=== PATIENT | male | born 1955 | race Caucasian/White ===

== ENCOUNTER → 2024-09-24 12:34 | Outpatient (REF) | payer OTHER, SELFPAY | LOC: RAD 12:34 | PROVIDERS: ATTENDING PHYSICIAN Nurse Practitioner Adult Health | DX: M79.18 Myalgia, other site (principal); R29.898 Other symptoms and signs involving the musculoskeletal system; M54.16 Radiculopathy, lumbar region | CPT/HCPCS: 72110 ==

== ENCOUNTER → 2024-10-01 15:08 | Outpatient (REF) | payer OTHER, SELFPAY | LOC: RAD 15:08 | PROVIDERS: ATTENDING PHYSICIAN Nurse Practitioner Adult Health | DX: M79.652 Pain in left thigh (principal) | CPT/HCPCS: 73552 ==

== ENCOUNTER 2024-10-16 13:14 | Outpatient (RCR) | payer OTHER, SELFPAY | END 2024-10-16 23:59 | disposition home or self-care (01) | LOC: RPT 13:14 | PROVIDERS: ATTENDING PHYSICIAN Nurse Practitioner Adult Health | DX: M54.16 Radiculopathy, lumbar region (principal); R29.898 Other symptoms and signs involving the musculoskeletal system; M79.18 Myalgia, other site; Z73.6 Limitation of activities due to disability; M62.81 Muscle weakness (generalized); R26.89 Other abnormalities of gait and mobility | CPT/HCPCS: 97110; 97162 ==

== ENCOUNTER → 2024-10-31 10:31 | Outpatient (REF) | payer OTHER, SELFPAY | LOC: EMG 10:31 | PROVIDERS: ATTENDING PHYSICIAN Nurse Practitioner Adult Health | DX: M54.14 Radiculopathy, thoracic region (principal); R29.2 Abnormal reflex; R20.0 Anesthesia of skin; Z01.818 Encounter for other preprocedural examination | CPT/HCPCS: 70030; 95886; 95910 ==

== ENCOUNTER → 2024-11-02 07:03 | Outpatient (REF) | payer OTHER, SELFPAY | LOC: MRI 3T 07:03 | PROVIDERS: ATTENDING PHYSICIAN Nurse Practitioner Adult Health | DX: M79.652 Pain in left thigh (principal); M54.16 Radiculopathy, lumbar region | CPT/HCPCS: 72148 ==

== ENCOUNTER 2024-11-12 13:50 | Outpatient (RCR) | payer OTHER, SELFPAY | END 2024-11-12 23:59 | disposition home or self-care (01) | LOC: RPT 13:50 | PROVIDERS: ATTENDING PHYSICIAN Nurse Practitioner Adult Health | DX: M54.16 Radiculopathy, lumbar region (principal); R29.898 Other symptoms and signs involving the musculoskeletal system; M79.18 Myalgia, other site; Z73.6 Limitation of activities due to disability; M62.81 Muscle weakness (generalized); R26.89 Other abnormalities of gait and mobility | CPT/HCPCS: 97110 ==

== ENCOUNTER 2025-01-15 06:14 | Day surgery (SDC) | payer OTHER, SELFPAY ==
[2024-12-24 13:51] VITALS: BMI 25.2
[2024-12-24 14:12] LABS: Hematocrit 43.6 % (39.0-52.0); Hemoglobin 14.4 g/dL (13.0-18.0); Mean Corp Hgb Conc. 33.0 g/dL (33.0-37.0); Mean Corpuscular Volume 86.2 fL (80.0-94.0); Platelet Count 327 10^3/uL (130-400); Red Cell Dist. Width 13.5 % (11.5-14.5)
[2024-12-24 14:27] LABS: ALT (SGPT) 26 U/L (0-50); AST (SGOT) 24 U/L (17-59); Albumin 4.7 g/dl (3.5-5.0); Alkaline Phosphatase 61 U/L (38-126); Blood Urea Nitrogen 12 mg/dl (9-20); Calcium 9.8 mg/dl (8.4-10.2); Carbon Dioxide 27 mmol/L (22-30); Chloride 101 mmol/L (98-107); Estimated Creatinine Clearance 74 ml/min; Glucose 77 mg/dl (70-99); HDL Cholesterol 39 mg/dl; LDL Cholesterol, Calculated 69 mg/dl; Potassium 4.5 mmol/L (3.5-5.1); Sodium 136 mmol/L (135-145); Total Protein 7.4 g/dl (6.3-8.2); Uric Acid 4.6 mg/dl (3.5-8.5); Very Low Density Lipoprotein 20 mg/dl (0-30); eGFR > 60.00
[2024-12-24 14:52] VITALS: BMI 25.2
[2025-01-15] VITALS (12 sets, daily range): BP systolic 120–152; BP diastolic 60–80; BMI 25.2
[2025-01-15] MEDS: NORMOSOL-R/PLASMALYTE-A 1000 IV (08:24)
[2025-01-15] MEDS: METHOCARBAMOL 1500 MG PO (08:24)
[2025-01-15] MEDS: CELEBREX 200 MG PO (08:24)
[2025-01-15] MEDS: TYLENOL 1000 MG PO (08:24)
[2025-01-15] MEDS: LYRICA 150 MG PO (08:24)
== END 2025-01-15 12:55 | disposition home or self-care (01) ==
LOC: SDS 06:14
PROVIDERS: ATTENDING PHYSICIAN Orthopaedic Surgery Orthopaedic Surgery of the Spine; FAMILY PHYSICIAN Nurse Practitioner Adult Health
DX: M48.061 Spinal stenosis, lumbar region without neurogenic claudication (principal)
CPT/HCPCS: 63047; 36415; 72020; 80053; 80061; 84153; 84154; 84550; 85027; 87070; 93005; C1763

== ENCOUNTER 2025-01-16 20:24 | Observation (INO) | payer OTHER, SELFPAY ==
[2025-01-16] VITALS (7 sets, daily range): BP systolic 110–159; BP diastolic 59–85; BMI 25.1
--- NOTE | 2025-01-16 17:43 | ED.GENMED ---
History of Present Illness
General
Chief Complaint: Cardiac Symptoms
Source: patient and records
Time Seen by Provider: 01/16/25 17:33
History of Present Illness
History of Present Illness:
69-year-old male postop day 1 from a left L4-L5 hemilaminectomy presenting to the ER via EMS from home for evaluation after around 3 PM this afternoon he started experiencing palpitations, chest discomfort and bilateral shoulder pain with a
sensation of near syncope but never actually passing out. Patient states that at time of arrival to the ER all of his symptoms have resolved other than the continued back discomfort from his surgery yesterday. Patient states that he has been
following postoperative directions and has been mostly sedentary today only getting up to have something to eat and drink as well as to go to the bathroom. He did state that around 2 PM he took a dose of oxycodone which he normally does not take.
He denies any fevers, cough, diaphoresis, abdominal pain, nausea or vomiting. Patient is not on any anticoagulant medicine.
Past History
Past History
ED Past Medical History: HTN and Hypercholesterolemia
ED Past Surgical History: Cholecystectomy and Orthopedic
Social History
Tobacco: Non-smoker
Alcohol: None
Drug: None
Personal: Single
Living: alone
Review of Systems
Review of Systems
All Other Systems: ROS reviewed and negative except as documented in HPI and ROS
Phy Exam
Physical Exam
Physical Exam:
GENERAL: Alert , in no apparent distress
HEAD: Normocephalic atraumatic
EYE: clear conjunctiva
NECK: Supple
ENT: o/p clr, mmm.
CARDIAC: Tachycardic rate, regular rhythm
LUNGS: Clear breath sounds bilaterally, no acute respiratory distress, no wheezes/rales/rhonchi
ABDOMEN: Soft, without focal tenderness, no r/g, no cvat
NEUROLOGICAL: Alert and oriented
SKIN: Warm and dry, skin intact.
MUSCULOSKELETAL: No edema, well perfused.
PSYCH: Normal and appropriate interaction.
Scores
Heart Failure Risk
Heart Failure Risk Score: Not Applicable
Heart Score for Chest Pain Patients
STEMI patient?: Not applicable
Withdrawal Assessment of Alcohol
Withdrawal Assessment Completed?: Not applicable
Course
Orders/Labs/Results
Orders:
Orders
01/16/25 17:36
Electrocardiogram (*1) Urgent
Reason for Study: Tachycardia
01/16/25 17:37
EKG- Treatment ONCE
01/16/25 17:42
CT Chest PE Study Urgent
Comment:
Reason For Exam: palpitations, chest/neck pain, recent surgery
0.9% Sodium Chloride 1000 ml [Nss] 1,000 ml IV BOLUS
01/16/25 17:47
Basic Metabolic Panel Urgent
Magnesium Urgent
01/16/25 17:48
Complete Blood Count/With Diff Urgent
Troponin I Urgent
01/16/25 19:33
Urinalysis Reflex To Culture Urgent
Date Specimen was Collected: 01/16/25
Time Specimen was Collected: 19:31
Urine Microscopic Reflex Cult Urgent
01/16/25 20:12
Cervical Spine wo Contrast CT [CT Cervical Spine W/o Iv Contr] Urgent
Comment:
Reason For Exam: neck pain
01/16/25 20:15
Admit/Transfer Patient As Directed
Co-Sign Provider:
Level of Care: Observation services
Assign to:: Telemetry
Physician / Group: jermaine
Diagnosis: neck pain
Reason for Telemetry: Arrhythmia
Date to Stop Telemetry: 01/19/25
Time to Stop Telemetry: 11:00
PRN Pain Medication Management As Directed
May give lesser potent ordered pain med per pt: Yes
preference::
Protocol:: Medication orders for pain may be administered in a
manner that supports deferring to patient preference
when the pt is:
- Requesting an ordered lesser potent pain medication.
Least to most potent pain medications are defined
as: acetaminophen < NSAID < tramadol < opioids
(morphine, oxycodone, hydromorphone).
- Requesting a lesser dose of the same medication IF
ORDERED.
- Requesting a less intrusive route of administration
if both routes are prescribed by the provider (PO <
IV).
01/16/25 20:16
Code Status As Directed
Resuscitation Status: Full Code
01/16/25 20:41
Troponin I Urgent
01/19/25 11:00
DC Protocol for Telemetry ONCE
Abnormal Lab Results
01/16/25 01/16/25 01/16/25
17:47 17:48 19:33
WBC 16.1 H 10^3/uL
(4.8-10.8)
RBC 4.61 L 10^6/uL
(4.70-6.10)
MCHC 32.5 L g/dL
(33.0-37.0)
Abs Immat Gran (auto) 0.1 H 10^3/uL
(0-0.05)
Absolute Neuts (auto) 12.6 H 10^3/uL
(1.4-6.5)
Absolute Monos (auto) 1.5 H 10^3/uL
(0.1-0.6)
Neutrophils % 78.3 H %
(42.2-75.2)
Lymphocytes % 10.7 L %
(20.5-51.1)
Monocytes % 9.5 H %
(1.7-9.3)
Glucose 120 H mg/dl
(70-99)
Urine Bacteria (Reflex) Few A
(Negative)
Urine Albumin (Reflex) 1+ A
(Neg - Trace)
01/16/25 17:48
01/16/25 17:47
Vital Signs
Initial and Last Documented VS:
Initial Vital Signs
Temp Pulse Resp BP Pulse Ox
99.9 F 106 18 152/85 95
01/16/25 17:37 01/16/25 17:37 01/16/25 17:37 01/16/25 17:37 01/16/25 17:37
Last Documented Vital Signs
Temp Pulse Resp BP Pulse Ox
98.7 F 105 25 159/70 95
01/16/25 19:30 01/16/25 21:00 01/16/25 21:00 01/16/25 21:00 01/16/25 20:45
MDM/Problems Addressed
Differential Diagnosis Includes:
PE
Muscular pain
Cardiac Arrhythmia
Valvular dysfunction
ACS
Atelectasis
UTI
No concern for wound infection
Orthostasis
Medication reaction/side effect of oxycodone
MDM/Problems Addressed:
69-year-old male presenting to the ER for evaluation of palpitations and a sensation of of lightheadedness/near syncope but without any loss of consciousness. Approximately 1 hour prior to the symptoms patient did take a dose of oxycodone, question
possible medication reaction/side effect. Patient is tachycardic and given the chest discomfort/back discomfort and recent surgery will scan his chest for PE although given his surgery was 24 hours ago it would be very unlikely for this to have
progressed quickly. Given the near syncope and palpitations possible arrhythmia. Will check labs, treat with IV fluids and CT chest pending.
*Radiology
Radiology exam reviewed: radiology read reviewed
*Pulse Oximetry
SaO2: 95
Oxygen Mode of Delivery: Room air
Patient hypoxic: no
*EKG
Interpreted by ED Provider?: Yes
Heart Rate: 99
Rate: normal
Rhythm: sinus
[employer]: left axis deviation
Ischemia: no ischemia
*Marketing Liaison Interpretation
Rate: tachycardiac
Heart Rate: 108
Rhythm: sinus
*Critical Care Note
Total Time (30-74mins, 75-104mins- exclusive of procedures): Not Applicable
Data Reviewed
Review of Other/Old Records Reveals: Records and Operative Reports
Patient Management
Discussion with other providers: Hospitalist
Escalation/DeEscalation of care consider admission/obs:
CTA is negative for any central pulmonary embolism and no signs of dissection. Patient remains persistently tachycardic and given he is near syncopal episode there is a possibility of arrhythmia that may have caused his symptoms. He also lives
alone and appears in considerable pain and needing assistance to ambulate. At this time I do not think it is safe for patient to be discharged home especially with nobody at home to look after him. Will plan for admission here. Hospitalist team
aware and accepts for continued evaluation and treatment.
ED Attending Note
-
Portions of this chart may have been created with voice recognition software.� Occasional wrong word or��sound alike� substitutions may have occurred due to the inherent limitations of voice recognition software.
Discharge Plan
Departure
Patient Disposition: Admit
Date of Disposition: 01/16/25
Time of Disposition: 19:28
Presentation/result/management discussed w/ accepting MD/DO: Hospitalist
Discharge Problem:
Palpitations, Near syncope, Post-operative pain
Interventions
Interventions:
*Risk Screen - Suicide Last Done: 01/16/25 17:38
*General Assessment Last Done: 01/16/25 17:37
*Neglect/Abuse Screening Last Done: 01/16/25 17:38
*ED- Fall Risk Assessment Last Done: 01/16/25 17:37
*ED COVID-19 Vaccine History Last Done: 01/16/25 17:37
*ED Influenza Vaccine History Last Done: 01/16/25 17:37
*Nursing Disposition Last Done: 01/16/25 21:16
ED- Pulmonary Assessment Last Done: 01/16/25 17:38
ED- Cardiac Assessment Last Done: 01/16/25 17:38
[2025-01-16] MEDS: NSS 1000 IV (17:50)
[2025-01-16 17:52] LABS: Hematocrit 40.6 % (39.0-52.0); Hemoglobin 13.2 g/dL (13.0-18.0); Mean Corp Hgb Conc. 32.5 g/dL (33.0-37.0); Mean Corpuscular Volume 88.1 fL (80.0-94.0); Nucleated Red Blood Cells % 0 % (-); Platelet Count 268 10^3/uL (130-400); Red Cell Dist. Width 14.1 % (11.5-14.5)
[2025-01-16 18:09] LABS: Blood Urea Nitrogen 14 mg/dl (9-20); Calcium 9.1 mg/dl (8.4-10.2); Carbon Dioxide 27 mmol/L (22-30); Chloride 104 mmol/L (98-107); Glucose 120 mg/dl (70-99); Magnesium 1.7 mg/dl (1.6-2.3); Potassium 4.0 mmol/L (3.5-5.1); Sodium 135 mmol/L (135-145); eGFR > 60.00
[2025-01-16 18:19] LABS: Troponin I 0.019 ng/ml
[2025-01-16 19:47] LABS: Urine Character Clear (Clear)
[2025-01-16 20:04] LABS: Urine Red Blood Cell 0-2 /HPF (0-2); Urine Squamous Cell 0-2 /LPF (Few); Urine White Cell 0-2 /HPF (0-5)
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
[2025-01-16 21:23] LABS: Troponin I 0.020 ng/ml
[2025-01-16] MEDS: DILAUDID 0.5 MG IV (21:31)
[2025-01-16] MEDS: KEFLEX 500 MG PO (21:39)
[2025-01-16] MEDS: ZANAFLEX 2 MG PO (22:08)
[2025-01-17 03:00] VITALS: BP 138/65
[2025-01-17] MEDS: DILAUDID 0.5 MG IV ×3 (03:16→13:09)
[2025-01-17 03:28] LABS: Troponin I 0.021 ng/ml
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
[2025-01-17 07:35] VITALS: BP 149/71
[2025-01-17] MEDS: ZYLOPRIM 200 MG PO (07:51)
[2025-01-17] MEDS: LIPITOR 20 MG PO (07:51)
[2025-01-17] MEDS: ZANAFLEX 2 MG PO ×3 (07:51→21:23)
[2025-01-17] MEDS: COZAAR 50 MG PO (07:51)
[2025-01-17] MEDS: HEPARIN 5000 UNITS SC ×2 (07:52→20:08)
[2025-01-17] MEDS: TYLENOL 650 MG PO ×2 (07:53→15:03)
[2025-01-17] MEDS: KEFLEX 500 MG PO ×4 (07:54→21:23)
[2025-01-17] MEDS: NORVASC 10 MG PO (08:13)
[2025-01-17 09:45] LABS: Hematocrit 36.8 % (39.0-52.0); Hemoglobin 12.5 g/dL (13.0-18.0); Mean Corp Hgb Conc. 34.0 g/dL (33.0-37.0); Mean Corpuscular Volume 86.2 fL (80.0-94.0); Nucleated Red Blood Cells % 0 % (-); Platelet Count 253 10^3/uL (130-400); Red Cell Dist. Width 14.1 % (11.5-14.5)
[2025-01-17 10:06] LABS: ALT (SGPT) 17 U/L (0-50); AST (SGOT) 20 U/L (17-59); Albumin 3.4 g/dl (3.5-5.0); Alkaline Phosphatase 47 U/L (38-126); Blood Urea Nitrogen 15 mg/dl (9-20); Calcium 8.6 mg/dl (8.4-10.2); Carbon Dioxide 28 mmol/L (22-30); Chloride 102 mmol/L (98-107); Estimated Creatinine Clearance 70 ml/min; Glucose 109 mg/dl (70-99); Potassium 3.9 mmol/L (3.5-5.1); Sodium 132 mmol/L (135-145); Total Protein 6.0 g/dl (6.3-8.2); eGFR > 60.00
[2025-01-17 10:10] LABS: Troponin I 0.014 ng/ml
[2025-01-17 11:08] VITALS: BP 92/52
--- NOTE | 2025-01-17 11:37 | CM ---
CM following re: discharge planning.
Reviewed pt's chart, met with pt.
Pt is a 69 year old male, admitted with OBS status and primary dx of Severe acute neck pain rule out cervical spine fracture versus cervical muscle strain. OBS status explained to the pt, [facility] letter signed, placed on chart, pt has a copy.
Pt reports he lives alone in a condo, has a sister who lives in [place], has no children, has supportive friends. 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
D/C plan: home with no needs anticipated.
CM will follow with discharge plan updates as hospitalization progresses
[2025-01-17 14:39] VITALS: BP 139/66
[2025-01-17] MEDS: TORADOL 10 MG IV ×2 (15:04→21:23)
[2025-01-17 19:00] VITALS: BP 117/58; BP 117/61; BP 118/62; PULSE 87; PULSE 88; PULSE 96
[2025-01-17 23:10] VITALS: BP 96/50
[2025-01-18 03:00] VITALS: BP 157/73
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
[2025-01-18 07:29] LABS: Hematocrit 36.0 % (39.0-52.0); Hemoglobin 12.4 g/dL (13.0-18.0); Mean Corp Hgb Conc. 34.4 g/dL (33.0-37.0); Mean Corpuscular Volume 83.5 fL (80.0-94.0); Platelet Count 246 10^3/uL (130-400); Red Cell Dist. Width 13.9 % (11.5-14.5)
[2025-01-18 07:35] VITALS: BP 150/79
[2025-01-18 07:55] LABS: ALT (SGPT) 18 U/L (0-50); AST (SGOT) 19 U/L (17-59); Albumin 3.3 g/dl (3.5-5.0); Alkaline Phosphatase 55 U/L (38-126); Blood Urea Nitrogen 22 mg/dl (9-20); Calcium 8.4 mg/dl (8.4-10.2); Carbon Dioxide 27 mmol/L (22-30); Chloride 101 mmol/L (98-107); Estimated Creatinine Clearance 70 ml/min; Glucose 106 mg/dl (70-99); Potassium 3.9 mmol/L (3.5-5.1); Sodium 132 mmol/L (135-145); Total Protein 5.9 g/dl (6.3-8.2); eGFR > 60.00
[2025-01-18] MEDS: ZYLOPRIM 200 MG PO (09:17)
[2025-01-18] MEDS: KEFLEX 500 MG PO ×4 (09:17→21:19)
[2025-01-18] MEDS: COZAAR 50 MG PO (09:17)
[2025-01-18] MEDS: NORVASC 10 MG PO (09:17)
[2025-01-18] MEDS: LIPITOR 20 MG PO (09:18)
[2025-01-18] MEDS: TYLENOL 650 MG PO (09:18)
[2025-01-18] MEDS: TORADOL 10 MG IV ×2 (09:18→18:21)
[2025-01-18] MEDS: ZANAFLEX 2 MG PO ×3 (09:18→21:19)
[2025-01-18] MEDS: HEPARIN 5000 UNITS SC ×2 (09:19→19:51)
--- NOTE | 2025-01-18 11:13 | CM ---
Addendum entered by Jud Vásquez 01/19/25 14:00:
patient reported his neighbor will provide transport home
Addendum entered by Jud Vásquez 01/19/25 13:58:
Met with patient at bedside to discuss discharge plan; home health recommended; patient agreeable; agency options identified; agreeable to services from [facility]
Plan: Discharge to home today w/ home health from [facility]
Original Note:
Chart reviewed. Case Management will monitor disposition needs and support when identified
[2025-01-18 11:37] VITALS: BP 100/55; BP 115/65; BP 90/54; PULSE 100; PULSE 89
[2025-01-18] MEDS: PROTONIX 40 MG PO (11:58)
[2025-01-18 15:35] VITALS: BP 132/69
--- NOTE | 2025-01-18 16:20 | CON.MD ---
Consultation - Medical
-
s/p lami with aracnhoid cyst
Pt home alone, concerned about pain.
No weakness. No Headaches
Wound no signs of infection
Feels better
PT
D/c tomorrow
Consultation
-
Date/Time Consultation Requested: 01/18/2025
Date/Time Consultation Performed: 01/18/2025
Reason for Consultation: Pain
[2025-01-18 19:00] VITALS: BP 87/54; BP 92/54; BP 93/51; PULSE 87; PULSE 96; PULSE 98
[2025-01-18 23:08] VITALS: BP 122/62
[2025-01-19 03:07] VITALS: BP 124/66
[2025-01-19 07:00] VITALS: BP 144/74
[2025-01-19 07:13] LABS: Hematocrit 34.1 % (39.0-52.0); Hemoglobin 11.8 g/dL (13.0-18.0); Mean Corp Hgb Conc. 34.6 g/dL (33.0-37.0); Mean Corpuscular Volume 84.0 fL (80.0-94.0); Platelet Count 272 10^3/uL (130-400); Red Cell Dist. Width 13.5 % (11.5-14.5)
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
[2025-01-19 07:51] LABS: ALT (SGPT) 20 U/L (0-50); AST (SGOT) 19 U/L (17-59); Albumin 3.2 g/dl (3.5-5.0); Alkaline Phosphatase 56 U/L (38-126); Blood Urea Nitrogen 18 mg/dl (9-20); Calcium 8.2 mg/dl (8.4-10.2); Carbon Dioxide 26 mmol/L (22-30); Chloride 103 mmol/L (98-107); Estimated Creatinine Clearance 70 ml/min; Glucose 95 mg/dl (70-99); Potassium 3.7 mmol/L (3.5-5.1); Sodium 133 mmol/L (135-145); Total Protein 5.6 g/dl (6.3-8.2); eGFR > 60.00
[2025-01-19] MEDS: KEFLEX 500 MG PO ×2 (09:22→13:18)
[2025-01-19] MEDS: NORVASC 10 MG PO (09:22)
[2025-01-19] MEDS: LIPITOR 20 MG PO (09:22)
[2025-01-19] MEDS: ZYLOPRIM 200 MG PO (09:23)
[2025-01-19] MEDS: HEPARIN 5000 UNITS SC (09:23)
[2025-01-19] MEDS: COZAAR 50 MG PO (09:23)
[2025-01-19] MEDS: PROTONIX 40 MG PO (09:23)
[2025-01-19] MEDS: ZANAFLEX 2 MG PO ×2 (09:23→15:41)
[2025-01-19] MEDS: TORADOL 10 MG IV (09:30)
[2025-01-19 11:00] VITALS: BP 89/49
[2025-01-19 11:39] VITALS: BP 102/60; BP 105/59; BP 92/56; PULSE 90; O2SAT 92
[2025-01-19] MEDS: TYLENOL 1000 MG PO (13:18)
--- NOTE | 2025-01-19 14:18 | CM ---
Plan: Discharge to home today w/ home health from [facility]; neighbor will provide transport home
[2025-01-19 15:00] VITALS: BP 116/66
--- NOTE | 2025-01-19 15:14 | W.DCSUMMARY ---
Documented by User: Linda Leon MD, Resident 01/19/25 15:27
Discharge Summary
Discharge Data
Date of Admission: 01/16/25
Date of Discharge: 01/19/25
Total time spent discharging patient (in min): 45 minutes
-
Pending Results: No
Hospital Course
Discharging Physician : Dr Brock Coker MD
Dr Linda Leon MD
Disposition : Home with home care
Primary care physician : Dr Wyatt Hanson
Principal Discharge diagnosis : S/p L4-L5 hemilaminectomy presenting with acute back pain.
Chronic Discharge diagnosis :
# Dizziness secondary to pain/dehydration/infection induced and monitored orthostatic vitals normal, continued pain medications for pain.
# Essential hypertension continued with amlodipine 10 mg, losartan 50 mg.
# Hypercholesterolemia continued with atorvastatin 20 mg
# Gout continued with allopurinol 100 mg
Hospital Course :
On 01/17 69-year-old male who underwent all 4-L5 hemilaminectomy on 01/15 presented for severe mid back pain to the ER. He experienced this pain after this OPD procedure and was given oxycodone which was not relieving his pain at that time. His
CBC, CMP panel ordered along with lumbar CT without IV contrast reported normal postop findings. Blood culture final reported negative. ESR, C-reactive protein elevated and he was already on prescription of cephalexin 500 mg for 5 days course
while on admission. Also appreciated consulted, PT evaluation and session performed throughout the course of admission. His pain medications include Toradol, Tylenol, oxycodone, along with skeletal muscle tizanidine at hospitalization. His
troponin trends are over the normal range. He had a symptom of loose stools probably secondary to antibiotics. Patient was stable at the time of discharge, with home PT by PT evaluation and recommended to follow-up with PCP and orthopedics within
a week of discharge. Throughout the admission he was on DVT prophylaxis Lovenox, full code with regular diet.
IMPORTANT:
If your symptoms worsen when you get home, go to the Emergency Room if you cannot reach a doctor, or call 911
Important imaging findings :
On 01/[address] without IV contrast:
Status post left hemilaminectomy at L4-5. Contrast resolution of the soft tissue somewhat poor on this unenhanced CT, and there is a small seroma at the left hemilaminectomy site. Superimposed infection of this presumed small seroma cannot be
excluded by CT.
No other focal collection is identified in the paraspinal region. There is no evidence for discitis or osteomyelitis.
Not mentioned above, evidence for a small right pleural effusion in the visualized right lower chest.
Calcification or calcifications in the central right mid kidney, probably nephrolithiasis.
On 01/[address] findings:
Mild to moderate motion artifact, which slightly limits the examination.
Given this limitation, no evidence for central pulmonary embolism.
Thoracic aorta is well-opacified with no evidence for thoracic aortic aneurysm or dissection.
Minimal bilateral pleural effusions. Atelectasis within the posterior and inferior lungs.
Procedure findings : None
Discharge Plan
-
Patient Disposition: Home with Home Care
Discharge Diagnosis/Procedures: Acute back pain secondary to s/p D4 L4-L5 hemilaminectomy
Condition: Fair
Diet: No restrictions
Activity: No restrictions
Driving Restrictions: As prior to admission
Bathing Restrictions: None
Other Services: PT
Instructions: Managing pain after surgery
Referrals:
Wyatt Hanson CRNP [Family Provider, Internal Medicine]
Additional Discharge Medication Instructions: Pain medications: Tylenol 1 g every 6 hours (do not exceed 4 g in 1 day), oxycodone every 6 hours as needed (5 mg for moderate pain, 10 mg for severe pain)
-Continue the current antibiotic course for 1 more day and to 01/20
-Follow-up with PCP within a week of discharge
-Follow-up with orthopedics in the next week
-Discharge today with PT recommendation to home.
Prescriptions:
New
acetaminophen [Tylenol Extra Strength] 500 mg tablet
500 mg PO Q6H PRN (Reason: Pain) Qty: 20 0RF
(DME) pt prescription
See Rx Instructions .Route .MEDSUPPLY Qty: 1 0RF
Rx Instructions:
Dx- Ambulatory dysfunction
PT-evaluate and treat
acetaminophen [Tylenol Extra Strength] 500 mg Tablet
1,000 mg PO Q6 7 Days Qty: 56 0RF
oxycodone 10 mg tablet
10 mg PO Q6H PRN (Reason: Severe Pain) 5 Days Qty: 20 0RF
Probiotic 15 billion cell capsule, sprinkle
1 cap PO DAILY Qty: 30 0RF
Continued
losartan 50 mg Tablet
50 mg PO DAILY
atorvastatin 20 mg Tablet
20 mg PO DAILY
allopurinol 100 mg Tablet
200 mg PO DAILY
amlodipine 10 mg Tablet
10 mg PO DAILY
tizanidine 2 mg Tablet
2 mg PO TID
oxycodone 5 mg Tablet
5 mg PO Q6HPRN PRN (Reason: severe pains)
cephalexin 500 mg Capsule
500 mg PO QID Qty: 5 0RF
Rx Instructions:
for 5 days starting 01/15/25
Discharge Orders:
Discharge Patient (As Directed); Ordered 01/19/25
Ordered By: Linda Leon
Discharge Date and Time
Print Language: TANZANIAN

Documented by User: Brock Coker DO 01/19/25 15:56
Discharge Summary
Discharge Data
Date of Admission: 01/16/25
Date of Discharge: 01/19/25
Total time spent discharging patient (in min): 45
Discharge Plan
-
Patient Disposition: Home with Home Care
Discharge Diagnosis/Procedures: Acute back pain secondary to s/p D4 L4-L5 hemilaminectomy
Condition: Fair
Diet: No restrictions
Activity: No restrictions
Driving Restrictions: As prior to admission
Bathing Restrictions: None
Other Services: PT
Instructions: Managing pain after surgery
Referrals:
Wyatt aHnson CRNP [Family Provider, Internal Medicine]
Additional Discharge Medication Instructions: Pain medications: Tylenol 1 g every 6 hours (do not exceed 4 g in 1 day), oxycodone every 6 hours as needed (5 mg for moderate pain, 10 mg for severe pain)
-Continue the current antibiotic course for 1 more day and to 01/20
-Follow-up with PCP within a week of discharge
-Follow-up with orthopedics in the next week
-Discharge today with PT recommendation to home.
Prescriptions:
New
acetaminophen [Tylenol Extra Strength] 500 mg tablet
500 mg PO Q6H PRN (Reason: Pain) Qty: 20 0RF
(DME) pt prescription
See Rx Instructions .Route .MEDSUPPLY Qty: 1 0RF
Rx Instructions:
Dx- Ambulatory dysfunction
PT-evaluate and treat
acetaminophen [Tylenol Extra Strength] 500 mg Tablet
1,000 mg PO Q6 7 Days Qty: 56 0RF
oxycodone 10 mg tablet
10 mg PO Q6H PRN (Reason: Severe Pain) 5 Days Qty: 20 0RF
Probiotic 15 billion cell capsule, sprinkle
1 cap PO DAILY Qty: 30 0RF
Continued
losartan 50 mg Tablet
50 mg PO DAILY
atorvastatin 20 mg Tablet
20 mg PO DAILY
allopurinol 100 mg Tablet
200 mg PO DAILY
amlodipine 10 mg Tablet
10 mg PO DAILY
tizanidine 2 mg Tablet
2 mg PO TID
oxycodone 5 mg Tablet
5 mg PO Q6HPRN PRN (Reason: severe pains)
cephalexin 500 mg Capsule
500 mg PO QID Qty: 5 0RF
Rx Instructions:
for 5 days starting 01/15/25
Discharge Orders:
Discharge Patient (As Directed); Ordered 01/19/25
Ordered By: Linda Leon
Discharge Date and Time
Print Language: TANZANIAN
== END 2025-01-19 16:50 | disposition home health service (06) ==
LOC: 2 SOUTH 20:24
PROVIDERS: Physician Assistant Medical; ADMITTING PHYSICIAN Hospitalist; ATTENDING PHYSICIAN Internal Medicine; CONSULT PHYSICIAN Orthopaedic Surgery Orthopaedic Surgery of the Spine; EMERGENCY PHYSICIAN Emergency Medicine; FAMILY PHYSICIAN Nurse Practitioner Adult Health
DX: G89.18 Other acute postprocedural pain (principal); M54.50 Low back pain, unspecified; R00.2 Palpitations; E78.00 Pure hypercholesterolemia, unspecified; R55 Syncope and collapse; E86.0 Dehydration; G89.29 Other chronic pain; I10 Essential (primary) hypertension; J90 Pleural effusion, not elsewhere classified; J98.11 Atelectasis; M10.9 Gout, unspecified; Z79.899 Other long term (current) drug therapy
CPT/HCPCS: 71275; 72125; 72131; 80048; 80053; 81003; 81015; 83735; 84484; 85025; 85027; 85652; 86140; 87040; 93005; 96360; 97116; 97162; 99285; G0378; Q9967

== ENCOUNTER 2025-01-31 12:48 | Inpatient (IN) | payer OTHER, SELFPAY ==
[2025-01-31] VITALS (14 sets, daily range): BP systolic 108–144; BP diastolic 59–80; BMI 23.0
--- NOTE | 2025-01-31 10:38 | EDRN ---
Med Rec being done at this time.
--- NOTE | 2025-01-31 11:00 | ED.GENMED ---
History of Present Illness
General
Chief Complaint: Post Operative Problem(s)
Source: patient and physician
Time Seen by Provider: 01/31/25 09:36
Nursing documentation reviewed up to this point in time: agreed with
History of Present Illness
History of Present Illness:
Note:
CHIEF COMPLAINT(S)
Leakage from surgical site post-laminectomy.
HISTORY OF PRESENT ILLNESS
The patient is a 69-year-old male who has been experiencing drainage from his surgical site following a recent laminectomy. The surgery was described as initially successful, but complications arose around , prompting him to call
paramedics due to severe pain and fear of a heart attack. Paramedics reassured him it was likely a medication side effect rather than a cardiac event, advised visiting the hospital, and provided him supportive care.
The patient attended a follow-up visit the Monday after being discharged on Monday for bandage removal, during which the surgical site appeared satisfactory with a waterproof bandage applied. However, by , he noticed worsening symptoms with
the drainage becoming significantly red. On further examination, it was identified the fluid was clear to yellow without odor, and he reported no associated fever or chills.
A subsequent evaluation revealed ongoing drainage saturating his clothing. The healthcare provider, upon consulting a specialist, ordered immediate reopening and cleaning of the wound. A phone call with his surgeon led to a decision for urgent
intervention at the hospital, culminating in his expedited admission later that day.
PHYSICAL EXAM
General: Alert, no acute distress.
Skin: Warm, dry.
Head: Normocephalic, atraumatic.
Neck: Supple, trachea midline.
Eye, Ears, Nose, Mouth, and Throat: Oral mucosa moist.
Cardiovascular: Normal peripheral perfusion, No edema.
Respiratory: Respirations are non-labored.
Gastrointestinal: Abdomen nondistended.
Back: Normal range of motion, Normal alignment.
Musculoskeletal: Normal range of motion, normal strength.
Neurological: Alert and oriented to person, place, time, and situation, No focal neurological deficit observed.
Psychiatric: Cooperative, appropriate mood & affect.
PROBLEM LIST
Acute:
- Post-surgical site drainage.
PLAN
Hospital admission for further evaluation and management of wound drainage.
Reopening and cleaning of the surgical site as recommended by the specialist.
DIFFERENTIAL DIAGNOSIS
The Differential Diagnosis includes, in no particular order and is not limited to:
1. Surgical site infection.
2. Seroma formation.
3. Hematoma.
4. Wound dehiscence.
5. Abscess.
6. Cerebrospinal fluid leak.
7. Lymphocele.
8. Foreign body reaction.
9. Medication side effect.
10. Normal postoperative healing process.
Disposition:
SUMMARY OF ENCOUNTER
The patient, a 69-year-old male, presented to the emergency department with ongoing drainage from his surgical site post-laminectomy. There were no signs of sepsis, but due to the significant drainage from the site, the decision was made to admit
him for further evaluation. Discussion with the orthopedic spinal surgery team resulted in a plan for surgery to perform a wound washout.
DISPOSITION
Admit to hospital.
ASSESSMENT
Post-operative wound drainage.
MANAGEMENT OF THE PATIENTS CARE WAS DISCUSSED WITH
Orthopedic spinal surgery team for decision-making regarding the need for operative intervention.
PLAN
The plan includes hospital admission for the patient, with the orthopedic spinal surgery team taking him to the operating room for a wound washout.
MEDICAL DECISION MAKING
- Number and Complexity of Problems Addressed: Chronic conditions affecting care include postoperative wound drainage. Differential diagnoses considered include surgical site infection, seroma formation, hematoma, wound dehiscence, abscess,
cerebrospinal fluid leak, lymphocele, foreign body reaction, medication side effect, and normal postoperative healing process.
- Data:
Category 3: Discussion of management with other providers included discussion with the orthopedic spinal surgery team regarding surgical intervention.
- Risk: Given the significant concern of wound complications and the need for surgical intervention, the decision to admit the patient for immediate intervention was necessary.
Past History
Past History
ED Past Medical History: HTN and Hypercholesterolemia
ED Past Surgical History: Cholecystectomy and Orthopedic
Social History
Tobacco: Non-smoker
Alcohol: None
Drug: None
Personal: Single
Living: alone
Phy Exam
Physical Exam
Physical Exam:
.
Course
Orders/Labs/Results
Orders:
Orders
01/31/25 Lunch
NPO
Allow oral meds: No
Allow clear liquids: No
NPO with Ice Chips: No
01/31/25 11:00
IV Insert/Care/Rem.- Treatment PRN
01/31/25 11:12
CRP [C-Reactive Protein] Urgent
Complete Blood Count/With Diff Urgent
Comprehensive Metabolic Panel Urgent
ESR [Erythrocyte Sed Rate] Urgent
Lactic Acid Q4H
Comment: CANCEL 2nd LACTIC ACID IF 1st LACTIC ACID IS LESS THAN 2
Blood Culture Q30M
SAMIRA Source: Blood/Venous
Specimen Description:
01/31/25 12:17
Blood Culture Q30M
SAMIRA Source: Blood/Venous
Specimen Description:
01/31/25 12:31
Admit/Transfer Patient As Directed
Co-Sign Provider:
Level of Care: Inpatient admission
Assign to:: Medical/Surgical
Physician / Group: Richy Fried
Diagnosis: postoperative complication of drainage from incision site
Reason for Hospitalization: postoperative complication of drainage from incision site
Expected length of stay greater than two midnights?: Yes
ELOS- Estimated Length of Stay in days: 3
I certify the patient meets the requirements for IP care: Yes
PRN Pain Medication Management As Directed
May give lesser potent ordered pain med per pt: Yes
preference::
Protocol:: Medication orders for pain may be administered in a
manner that supports deferring to patient preference
when the pt is:
- Requesting an ordered lesser potent pain medication.
Least to most potent pain medications are defined
as: acetaminophen < NSAID < tramadol < opioids
(morphine, oxycodone, hydromorphone).
- Requesting a lesser dose of the same medication IF
ORDERED.
- Requesting a less intrusive route of administration
if both routes are prescribed by the provider (PO <
IV).
01/31/25 12:33
Code Status As Directed
Resuscitation Status: Full Code
Abnormal Lab Results
01/31/25
11:12
Plt Count 542 H 10^3/uL
(130-400)
01/31/25 11:12
01/31/25 11:12
Vital Signs
Initial and Last Documented VS:
Initial Vital Signs
Temp Pulse Resp BP Pulse Ox
97.4 F 71 16 125/76 98
01/31/25 09:14 01/31/25 09:14 01/31/25 09:14 01/31/25 09:14 01/31/25 09:14
Last Documented Vital Signs
Temp Pulse Resp BP Pulse Ox
97.4 F 85 18 144/75 98
01/31/25 09:14 01/31/25 14:35 01/31/25 14:35 01/31/25 14:35 01/31/25 14:35
*Pulse Oximetry
SaO2: 100
Oxygen Mode of Delivery: Room air
Patient hypoxic: no
*Critical Care Note
Total Time (30-74mins, 75-104mins- exclusive of procedures): Not Applicable
ED Attending Note
-
Portions of this chart may have been created with voice recognition software.� Occasional wrong word or��sound alike� substitutions may have occurred due to the inherent limitations of voice recognition software.
Discharge Plan
Departure
Patient Disposition: Admit
Date of Disposition: 01/31/25
Time of Disposition: 11:51
Admit to: Med/Surg
Presentation/result/management discussed w/ accepting MD/DO: Hospitalist
Patient with high blood pressure during this ER visit?: Yes
Condition: Good
Discharge Problem:
Postoperative complication of skin involving drainage from surgical wound
Interventions
Interventions:
*Risk Screen - Suicide Last Done: 01/31/25 09:49
*General Assessment Last Done: 01/31/25 09:49
*Neglect/Abuse Screening Last Done: 01/31/25 09:49
*ED COVID-19 Vaccine History Last Done: 01/31/25 09:49
*ED Influenza Vaccine History Last Done: 01/31/25 09:49
[facility] Fall Risk Assessment Tool Last Done: 01/31/25 09:49
*Nursing Disposition Last Done: 01/31/25 14:59
ED-Skin Assessment Last Done: 01/31/25 09:58
Discharge Date and Time
Discharge Date/Time: 01/31/25 15:00
[2025-01-31 11:25] LABS: Hematocrit 39.9 % (39.0-52.0); Hemoglobin 13.4 g/dL (13.0-18.0); Mean Corp Hgb Conc. 33.6 g/dL (33.0-37.0); Mean Corpuscular Volume 84.0 fL (80.0-94.0); Nucleated Red Blood Cells % 0 % (-); Platelet Count 542 10^3/uL (130-400); Red Cell Dist. Width 13.4 % (11.5-14.5)
[2025-01-31 11:44] LABS: ALT (SGPT) 30 U/L (0-50); AST (SGOT) 21 U/L (17-59); Albumin 4.3 g/dl (3.5-5.0); Alkaline Phosphatase 73 U/L (38-126); Blood Urea Nitrogen 14 mg/dl (9-20); Calcium 9.6 mg/dl (8.4-10.2); Carbon Dioxide 24 mmol/L (22-30); Chloride 105 mmol/L (98-107); Estimated Creatinine Clearance 84 ml/min; Glucose 90 mg/dl (70-99); Potassium 4.5 mmol/L (3.5-5.1); Sodium 136 mmol/L (135-145); Total Protein 7.1 g/dl (6.3-8.2); eGFR > 60.00
[2025-01-31 11:47] LABS: C-Reactive Protein < 5.00 mg/L (0.0-10.00)
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
--- NOTE | 2025-01-31 12:16 | EDRN ---
Dr. Martinez and Jazmine CONDENSER OPERATOR in room w/pt at this time.
--- NOTE | 2025-01-31 16:14 | W.PN.SP ---
Today's Communication / Plan
-
s/p lami with wound drainage.
For I&D
Subjective / Objective
Subjective Data
PT s/p lami. Had increased drainage. No constitutional symptoms. No fever, chills, shakes. No leg pain
Had him come to ER due to socail issues. Doesn't have a lot of support at home.
Objective Data
Vital Signs
Temp Pulse Resp BP Pulse Ox
97.4 F 85 18 144/75 98
01/31/25 09:14 01/31/25 14:35 01/31/25 14:35 01/31/25 14:35 01/31/25 14:35
Lab Data
01/31/25 11:12
01/31/25 11:12
Physical Exam
-
Serosang drainage
NO weakness
--- NOTE | 2025-01-31 16:17 | W.IMMPOSTOP ---
Surgical Immed Post Op Note
-
Primary Surgeon: Alyx
Assisting Surgeon: Genie
Pre-op Diagnosis: Wound Drainage
Post-op Diagnosis: Same
Procedure Performed: I&D lumbar
Anesthesia Type: GET
Specimen / Cultures: Cx's wound
Estimated Blood Loss: 20
Complications: none
Operative Findings: Some purulence and drainage to bone
--- NOTE | 2025-01-31 16:20 | W.PN.UPDATE ---
Update Note
Progress Note Update
I&D performed. Some purulence through Fascia
Cultures taken. Will consult ID
No implants are in
[2025-01-31] MEDS: SUBLIMAZE 50 MCG IV ×2 (17:07→17:24)
--- NOTE | 2025-01-31 17:23 | PHA.VAN.IN ---
Assessment
- Assessment
Renal Function: Appears similar to baseline
AUC Dosing Plan
- Dosing Variables
Dosing Weight (kg): 79.2
Dosing CrCl (ml/min): 84
Vd coefficient (L/kg): 0.7
- Empiric Dosing
Initial / Loading Dose: VANCOMYCIN 1500 MG IV ~ 1551 on anesthesia report
Maintenance Regimen: VANCOMYCIN 1GM IV Q12H
Estimated AUC (mcg*h/mL): 504.8
Estimated Peak (mcg*h/mL): 30.6
Estimated Trough (mcg/ml): 13.6
Estimated Half Life (H): 9.3
- Monitoring
No levels ordered at this time: Please consider levels in next few days.
Pharmacokinetics Vancomycin I
- -
Patient Age: 69
Patient Sex: Male
Vancomycin Day #: 1
Indication: Skin And Soft Tissue
Requesting Provider: Finn ROSADO
Height / Weight:
Height 6 ft 1 in
Actual Weight 79.2 kg
Pertinent Past Medical History: Pt presented w. Leakage from surgical site post-laminectomy. I&D performed.
- Vital Signs / Lab Results
Temp Pulse Resp BP Pulse Ox
97.4 F 79 18 124/68 100
01/31/25 16:50 01/31/25 17:05 01/31/25 17:05 01/31/25 17:05 01/31/25 17:05
Lab Results - Hematology
01/31/25
11:12
WBC 7.2
Lab Results - Chemistry
01/31/25
11:12
BUN 14
Creatinine 0.9
Estimated Creat Clear 84
Albumin 4.3
01/31/25 01/31/25
11:12 15:00
Lactic Acid 1.0 Cancelled
--- NOTE | 2025-01-31 18:32 | PTCARENOTE ---
Received patient from PACU around 1800 via bed in stable condition. Dressing to back C/D/I. Patient oriented to room. Call chandler in reach.
[2025-02-01 03:30] VITALS: BP 131/71; BMI 22.8
[2025-02-01] MEDS: VANCOCIN 200 IV ×2 (05:31→17:20)
--- NOTE | 2025-02-01 07:11 | PHA.VAN.FU ---
Vancomycin Assessment / Plan
- Assessment
Renal Function: No New Labs Today
In the past 24 hrs, patient has been: Afebrile
- Dosing Plan
Continue: Vanc 1000mg Q12H
- Monitoring Plan
No level(s) ordered at this time: consider levels in next few days
- Follow Up
Pharmacy will continue to follow.
Vancomycin Follow UP
- -
Patient Age: 69
Patient Sex: Male
Vancomycin Day #: 2
Indication: Skin And Soft Tissue
Requesting Provider: Finn ROSADO
Pertinent Antimicrobial Allergies:
NKDA
Height / Weight:
Height 6 ft 1 in
Actual Weight 78.471 kg
Pertinent Past Medical History: Hemilaminectomy 01/15/25
- Vital Signs / Lab Results
Temp Pulse Resp BP Pulse Ox
98.6 F 82 17 131/71 96
02/01/25 03:30 02/01/25 03:30 02/01/25 03:30 02/01/25 03:30 02/01/25 03:30
Lab Results - Hematology
01/31/25
11:12
WBC 7.2
Lab Results - Chemistry
01/31/25
11:12
BUN 14
Creatinine 0.9
Estimated Creat Clear 84
Albumin 4.3
01/31/25 01/31/25
11:12 15:00
Lactic Acid 1.0 Cancelled
Microbiology Results
01/31/25 15:52 Gram Stain - Preliminary
Back
[2025-02-01 07:50] VITALS: BP 135/75
[2025-02-01 08:23] LABS: Hematocrit 36.8 % (39.0-52.0); Hemoglobin 12.6 g/dL (13.0-18.0); Mean Corp Hgb Conc. 34.2 g/dL (33.0-37.0); Mean Corpuscular Volume 82.9 fL (80.0-94.0); Platelet Count 566 10^3/uL (130-400); Red Cell Dist. Width 13.3 % (11.5-14.5)
[2025-02-01 08:49] LABS: Blood Urea Nitrogen 13 mg/dl (9-20); Calcium 9.1 mg/dl (8.4-10.2); Carbon Dioxide 24 mmol/L (22-30); Chloride 104 mmol/L (98-107); Estimated Creatinine Clearance 94 ml/min; Glucose 117 mg/dl (70-99); Potassium 4.6 mmol/L (3.5-5.1); Sodium 135 mmol/L (135-145); eGFR > 60.00
[2025-02-01] MEDS: NORVASC 10 MG PO (09:06)
[2025-02-01] MEDS: COZAAR 50 MG PO (09:06)
[2025-02-01] MEDS: LIPITOR 20 MG PO (09:06)
[2025-02-01] MEDS: ZYLOPRIM 200 MG PO (09:06)
[2025-02-01] MEDS: DILAUDID 0.25 MG IV (10:03)
--- NOTE | 2025-02-01 10:11 | CON.ID ---
Consultation
-
Date/Time Consultation Requested: 01/31/2025 1649
Date/Time Consultation Performed: 02/01/2025 1011
Requesting Provider: Jazmine Briseno
Performing Provider: Dr. Gold
Reason for Consultation: Back wound
Chief Complaint / Past History
History of Present Illness
Adam Leach is a 69-year-old male being evaluated at request of Jazmine Briseno regarding low back wound with drainage. History is obtained from chart review, along with patient interview.
The patient has a history of low back pain, and underwent a left L4-L5 hemilaminectomy on 01/15. He was discharged that day, but returned to the ER on 01/16 secondary to palpitations, chest discomfort and shoulder pain, with the sensation of near
syncope. By the time he had been seen in the ER his symptomatology had nearly resolved. He was admitted through 01/19, during which time he was evaluated by Orthopedics, and there were no signs of infection.
He returns to the ER on 01/31 secondary to drainage from his surgical site which developed over the past several days. He had not reported any fevers or chills, but he was concerned about reported increasing drainage. Last evening, the patient was
taken to the OR for washout of the area. Infectious Diseases assessed, and upon further antimicrobial management.
Prior to admission, patient denies any fevers or chills. He reports he was having very little back pain.
Past History
Additional Past Medical History:
HTN
HLD
Additional Past Surgical History:
Cholecystectomy
Laminectomy
Allergy History:
No Known Allergies Allergy (Verified 01/31/25 09:12)
Medications Reviewed: Yes
Current Antibiotics:
Vancomycin 1 gm IV q.12 hours
Social History
Tobacco: Non-Smoker
Alcohol: None
Drug: None
Personal: Single
Living: Alone
Employment: Retired
Family History
Family History: Not Pertinent
Review of Systems
Vital Signs
Temp Pulse Resp BP Pulse Ox
98.7 F 81 15 139/72 96
02/01/25 07:50 02/01/25 09:06 02/01/25 07:50 02/01/25 09:06 02/01/25 07:50
Physical Exam
Physical Exam
Constitutional: No Acute Distress, Comfortable and Non-toxic
Eyes: No Conjunctival Hemorrhage and Sclera Anicteric
Oral: No Thrush and No Ulcers
Cardiovascular: Regular Rate and S1/S2; Negative S3/S4
Pulmonary: Clear; Negative Wheezes or Rales
Gastrointestinal: Soft, Non Tender, Non Distended and Normal Bowel Sounds
Extremities: Negative Edema or Cyanosis
Wound: Other (Low back with dressing in place. No periwound erythema noted.)
Neurological: Awake and Alert
Psychological: Calm
Lab / Diagnostic Study Results
02/01/25 08:14
02/01/25 08:14
Abs Immat Gran (auto) 0.0 10^3/uL (0-0.05) 01/31/25 11:12
Absolute Neuts (auto) 4.1 10^3/uL (1.4-6.5) 01/31/25 11:12
Absolute Lymphs (auto) 2.3 10^3/uL (1.2-3.4) 01/31/25 11:12
Absolute Monos (auto) 0.6 10^3/uL (0.1-0.6) 01/31/25 11:12
Absolute Basos (auto) 0.1 10^3/uL (0-0.2) 01/31/25 11:12
Immature Gran % 0.3 % (0-0.5) 01/31/25 11:12
Neutrophils % 56.0 % (42.2-75.2) 01/31/25 11:12
Lymphocytes % 31.9 % (20.5-51.1) 01/31/25 11:12
Monocytes % 8.2 % (1.7-9.3) 01/31/25 11:12
Eosinophils % 2.8 % (0-6) 01/31/25 11:12
Basophils % 0.8 % (0-2) 01/31/25 11:12
ESR 16 mm/hour (0-20) 01/31/25 11:12
Lactic Acid Cancelled 01/31/25 15:00
C-Reactive Protein < 5.00 mg/L (0.0-10.00) 01/31/25 11:12
Microbiology Results
Micro:
01/31/25 15:52 Wound Culture - Pending
Back Gram Stain - Preliminary
01/31/25 15:52 Anaerobic Culture - Pending
Back
01/31/25 12:17 Blood Culture - Pending
Blood/Venous
01/31/25 11:12 Blood Culture - Pending
Blood/Venous
Imaging:
01/18/2025 CT lumbar spine without contrast: patient is status post left hemilaminectomy at L4-5. Contrast resolution of the soft tissues is somewhat poor on this unenhanced CT. A small seroma at the left Berhane laminectomy site is seen. No other
focal collections identified. No evidence for discitis or osteomyelitis.
Assessment / Plan
S/p L4-5 hemilaminectomy (01/15/2025)
Wound drainage; s/p washout (01/31/2025)
Leukocytosis; likely secondary to surgery yesterday
HTN
HLD
Recommendations:
Intraoperative cultures currently pending; will follow.
Continue with empiric vancomycin. Follow levels closely to prevent nephrotoxicity
Local care to the wound area.
Monitor white count and temperature curve.
Care Review
Plan reviewed with: Physician (Spinal surgery)
--- NOTE | 2025-02-01 10:29 | W.PN.SP ---
Today's Communication / Plan
-
s/p washout.
Await cultures.
OOB
Pain control
Subjective / Objective
Subjective Data
PT has back pain
Cx's pending
Afebrile
Objective Data
Vital Signs
Temp Pulse Resp BP Pulse Ox
98.7 F 81 15 139/72 96
02/01/25 07:50 02/01/25 09:06 02/01/25 07:50 02/01/25 09:06 02/01/25 07:50
Intake and Output
01/31/25 02/01/25 02/02/25
06:59 06:59 06:59
Intake Total 680 / 680
Output Total 625 / 625
Balance 55 / 55
Intake:
Oral fluids 480 / 480
IV fluids (Total) 200 / 200
normosol 200 / 200
Output:
Urine, Voided 625 / 625
Other:
Number of approximated LARGE 1
amounts of urine
Lab Data
02/01/25 08:14
02/01/25 08:14
Physical Exam
-
MOving both LE
[2025-02-01] MEDS: TYLENOL 1000 MG PO ×2 (11:20→18:47)
--- NOTE | 2025-02-01 11:37 | W.PN.HOSP.TC ---
Today's Communication/Plan
-
- Blood cultures pending
- Wound cultures pending
- Pain management as needed
- CBC, BMP in the morning
Assessment / Plan
Assessment / Plan
Patient is a 69-year-old male with PMH significant for L4-L5 hemilaminectomy on 01/[address] Wisdom.
#L4-L5 hemilaminectomy on 01/15/25 with consistent drainage
- Hospitalization from 01/16 - 01/19 for extreme back pain, CT lumbar spine indicated a small seroma in the left hemilaminectomy site. At that time superimposed infection of seroma could not be excluded per imaging.
- Drainage has been present for last 10 days
- Dr. Wisdom requested patient come to ED for admission and washout
- I and D completed on 01/31/2025
- Blood cultures pending
- Wound cultures pending
- Pain management as needed
- Today with elevated WBC, continue to trend
#Hypertension
- Continue amlodipine and losartan
#Hypercholesteremia
- Continue atorvastatin
#Gout
- Continue allopurinol
Anticipated Discharge: 24 - 48 hours
Subjective/Interval History
-
Date of Service: February 01, 2025
Patient seen at bedside this morning. Patient states that he has a lot of pain rating his pain 9/10 and located in his back. Patient was frustrated with his pain as well as having to return to the hospital. Patient denied all other ROS.
Objective Data
-
Labs:
Laboratory Results
02/01/25
08:14
WBC 13.5 H
Hgb 12.6 L
Hct 36.8 L
Plt Count 566 H
Sodium 135
Potassium 4.6
Chloride 104
Carbon Dioxide 24
BUN 13
Creatinine 0.8
Glucose 117 H
Calcium 9.1
Vital Signs:
Vital Signs
Temp Pulse Resp BP Pulse Ox
98.7 F 81 15 139/72 96
02/01/25 07:50 02/01/25 09:06 02/01/25 07:50 02/01/25 09:06 02/01/25 07:50
I&O
01/31/25 02/01/25 02/02/25
06:59 06:59 06:59
Intake Total 680 / 680 236 / 236
Output Total 625 / 625
Balance 55 / 55 236 / 236
Review of Systems
-
History Source: Patient
EENT: Reports No Symptoms Reported
Respiratory: Reports No Symptoms
Cardiac: Reports No Symptoms
Abdomen/GI: Reports No Symptoms
Genitourinary: Reports No Symptoms
Musculoskeletal: Reports Other (Severe back pain at site of laminectomy washout)
Skin: Reports No Symptoms
Neuro: Reports No Symptoms
Endocrine: Reports No Symptoms
Hematologic / Lymphatic: Reports No Symptoms
Allergy / Immunology: Reports No Symptoms
Psych: Reports Sad
Physical Exam
-
General: Well Developed, Well Nourished and Pain (9 out of 10)
HEENT: Normocephalic, Atraumatic and Moist Mucous Membranes
Respiratory: Clear to Auscultation
Cardiac: Regular Rhythm
GI: Soft, Nontender and Nondistended
Musculoskeletal: No Edema
Skin: Warm and Dry
Neuro: Awake, Alert and Oriented
Psych: Calm
--- NOTE | 2025-02-01 12:57 | W.PN.UPDATE ---
Update Note
Progress Note Update
Discussed case with resident
HPI: 69-year-old male with PMH significant for L4-L5 hemilaminectomy on 01/[address] Wisdom.
A/P:
# L4-L5 hemilaminectomy on 01/15/25 with subsequent drainage
recently hospitalized from 01/16 - 01/19 for extreme back pain, CT lumbar spine indicated a small seroma in the left hemilaminectomy site. At that time superimposed infection of seroma could not be excluded per imaging.
Dr. Wisdom requested patient come to ED for admission and washout
s/p Lumbar wound I and D on 01/31/2025
Pain control with Tylenol ATC and PRN, Tramadol PRN and IV Dilaudid PRN
Follow Blood cultures
Follow Wound cultures
ID consulted
# Hypertension
Continue amlodipine and losartan with holding parameters
# Hypercholesteremia
Continue atorvastatin
# Gout
Continue allopurinol
DVT ppx: SCD for now, will check with Dr Wisdom if he is OK with lovenox SQ for DVT ppx
FC
--- NOTE | 2025-02-01 13:52 | CM ---
Initial assessment completed with patient who lives alone in a 1 story no basement condo with no steps to enter. 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 Has a pulse oximeter, B/P machine ad walking stick which he does not
use. No in-home services. No HC-POA. No VA benefits. No psychiatric hospitalizations. PCP is Dr. Enzo Hanson. Pharmacy is [facility] on [address] in [place]. Discharge POC: Anticipate home with no needs. Watch for possible care rep.
[2025-02-01 15:10] VITALS: BP 140/76
[2025-02-01] MEDS: ULTRAM 50 MG PO (16:06)
[2025-02-01] MEDS: SENOKOT-S 1 TABLET PO (20:10)
[2025-02-01 23:19] VITALS: BP 124/61
[2025-02-02] MEDS: TYLENOL 1000 MG PO ×3 (03:10→18:25)
[2025-02-02] MEDS: VANCOCIN 200 IV ×2 (05:24→18:24)
[2025-02-02 07:29] LABS: Hematocrit 38.1 % (39.0-52.0); Hemoglobin 12.4 g/dL (13.0-18.0); Mean Corp Hgb Conc. 32.5 g/dL (33.0-37.0); Mean Corpuscular Volume 86.4 fL (80.0-94.0); Platelet Count 527 10^3/uL (130-400); Red Cell Dist. Width 13.7 % (11.5-14.5)
[2025-02-02 07:57] LABS: Blood Urea Nitrogen 13 mg/dl (9-20); Calcium 8.9 mg/dl (8.4-10.2); Carbon Dioxide 26 mmol/L (22-30); Chloride 101 mmol/L (98-107); Estimated Creatinine Clearance 84 ml/min; Glucose 110 mg/dl (70-99); Potassium 4.3 mmol/L (3.5-5.1); Sodium 135 mmol/L (135-145); eGFR > 60.00
[2025-02-02 08:20] VITALS: BP 122/72
[2025-02-02] MEDS: NORVASC 10 MG PO (08:59)
[2025-02-02] MEDS: LIPITOR 20 MG PO (09:02)
[2025-02-02] MEDS: COZAAR 50 MG PO (09:02)
[2025-02-02] MEDS: ZYLOPRIM 200 MG PO (09:02)
[2025-02-02] MEDS: SENOKOT-S 1 TABLET PO ×2 (09:02→19:40)
--- NOTE | 2025-02-02 09:11 | PHA.VAN.FU ---
Addendum entered and electronically signed by Dimple Dixon RPH 02/02/25 14:08:
BUN & SCR ordered per protocol
Original Note:
Vancomycin Assessment / Plan
- Assessment
Renal Function: Stable
WBC's are: WNL
In the past 24 hrs, patient has been: Afebrile
- Dosing Plan
Continue: Vanc 1000mg Q12H
- Monitoring Plan
Peak Level: 02/02 21:00
Trough Level: 02/03 05:30
Monitoring Comments: levels to be drawn after 4th maintenance dose
- Follow Up
Pharmacy will continue to follow.
Vancomycin Follow UP
- -
Patient Age: 69
Patient Sex: Male
Vancomycin Day #: 3
Indication: Skin And Soft Tissue
Requesting Provider: Finn ROSADO
Pertinent Antimicrobial Allergies:
NKDA
Height / Weight:
Height 6 ft 1 in
Actual Weight 78.471 kg
Pertinent Past Medical History: Hemilaminectomy 01/15/25
- Vital Signs / Lab Results
Temp Pulse Resp BP Pulse Ox
97.8 F 74 16 122/72 98
02/02/25 08:20 02/02/25 08:20 02/02/25 08:20 02/02/25 08:20 02/02/25 08:20
Lab Results - Hematology
01/31/25 02/01/25 02/02/25
11:12 08:14 06:49
WBC 7.2 13.5 H 8.8
Lab Results - Chemistry
01/31/25 02/01/25 02/02/25
11:12 08:14 06:49
BUN 14 13 13
Creatinine 0.9 0.8 0.9
Estimated Creat Clear 84 94 84
Albumin 4.3
01/31/25 01/31/25
11:12 15:00
Lactic Acid 1.0 Cancelled
Microbiology Results
01/31/25 15:52 Anaerobic Culture - Preliminary
Back Culture pending. Anaerobic cultures are examined after 3
days incubation. Additional information to follow.
01/31/25 15:52 Wound Culture - Preliminary
Back No growth
Gram Stain - Preliminary
01/31/25 12:17 Blood Culture - Preliminary
Blood/Venous No Growth in 24 hours- Final report to follow
01/31/25 11:12 Blood Culture - Preliminary
Blood/Venous No Growth in 24 hours- Final report to follow
--- NOTE | 2025-02-02 11:44 | W.PN.ID1 ---
Date of Service
Date of Service: February 02, 2025
Today's Communication
Continue vancomycin for today.
Assessment / Plan
S/p L4-5 hemilaminectomy (01/15/2025)
Wound drainage; s/p washout (01/31/2025)
Leukocytosis; likely secondary to surgery yesterday
HTN
HLD
Recommendations:
Intraoperative cultures currently pending; will follow.
Continue with empiric vancomycin. Follow levels closely to prevent nephrotoxicity
Local care to the wound area.
Monitor white count and temperature curve.
Chief Complaint
-: Other (Back wound)
Subjective / Review of Systems
Patient seen and examined. Still with low back pain.
Review of Systems: No Fever and No Chills
Vital Signs / Physical Exam
Vital Signs
Vital Signs
Temp Pulse Resp BP Pulse Ox
97.8 F 74 16 122/72 98
02/02/25 08:20 02/02/25 08:20 02/02/25 08:20 02/02/25 08:20 02/02/25 08:20
Physical Exam
Constitutional: No Acute Distress, Comfortable and Non-toxic
Pulmonary: Non Labored
Gastrointestinal: Non Distended
Wound: Other (Lumbar wound dressing in place.)
Neurological: Awake and Alert
Psychological: Calm
Objective Data
Lab Data
Lab Results
02/02/25 06:49
02/02/25 06:49
ESR 16 mm/hour (0-20) 01/31/25 11:12
Estimated Creat Clear 84 ml/min 02/02/25 06:49
Lactic Acid Cancelled 01/31/25 15:00
Total Bilirubin 0.7 mg/dl (0.2-1.3) 01/31/25 11:12
AST 21 U/L (17-59) 01/31/25 11:12
ALT 30 U/L (0-50) 01/31/25 11:12
Alkaline Phosphatase 73 U/L (38-126) 01/31/25 11:12
C-Reactive Protein < 5.00 mg/L (0.0-10.00) 01/31/25 11:12
Most recent labs reviewed.
Micro Results:
01/31/25 11:12 Blood Culture - Preliminary
Blood/Venous No Growth in 48 hours- Final report to follow
01/31/25 15:52 Anaerobic Culture - Preliminary
Back Culture pending. Anaerobic cultures are examined after 3
days incubation. Additional information to follow.
01/31/25 15:52 Wound Culture - Preliminary
Back No growth
Gram Stain - Preliminary
01/31/25 12:17 Blood Culture - Preliminary
Blood/Venous No Growth in 24 hours- Final report to follow
Imaging:
01/18/2025 CT lumbar spine without contrast: patient is status post left hemilaminectomy at L4-5. Contrast resolution of the soft tissues is somewhat poor on this unenhanced CT. A small seroma at the left Berhane laminectomy site is seen. No other
focal collections identified. No evidence for discitis or osteomyelitis.
--- NOTE | 2025-02-02 12:07 | W.PN.HOSP.TC ---
Today's Communication/Plan
-
- Continue antibiotics today
- Continue pain management as needed
- Follow cultures
Assessment / Plan
Assessment / Plan
Patient is a 69-year-old male with PMH significant for L4-L5 hemilaminectomy on 01/[address] Wisdom.
#L4-L5 hemilaminectomy on 01/15/25 with consistent drainage
- Hospitalization from 01/16 - 01/19 for extreme back pain, CT lumbar spine indicated a small seroma in the left hemilaminectomy site. At that time superimposed infection of seroma could not be excluded per imaging.
- Drainage has been present for last 10 days
- Dr. Wisdom requested patient come to ED for admission and washout
- I and D completed on 01/31/2025
- Final blood cultures pending
- Final wound cultures pending
- Pain management as needed, scheduled Tylenol
- WBC normalized, continue to trend
#Hypertension
- Continue amlodipine and losartan
#Hypercholesteremia
- Continue atorvastatin
#Gout
- Continue allopurinol
Anticipated Discharge: 24 - 48 hours
Subjective/Interval History
-
Date of Service: February 02, 2025
Patient seen this morning while he was standing up and walking around his room.
Objective Data
-
Labs:
Laboratory Results
02/02/25
06:49
WBC 8.8
Hgb 12.4 L
Hct 38.1 L
Plt Count 527 H
Sodium 135
Potassium 4.3
Chloride 101
Carbon Dioxide 26
BUN 13
Creatinine 0.9
Glucose 110 H
Calcium 8.9
Vital Signs:
Vital Signs
Temp Pulse Resp BP Pulse Ox
97.8 F 74 16 122/72 98
02/02/25 08:20 02/02/25 08:20 02/02/25 08:20 02/02/25 08:20 02/02/25 08:20
I&O
02/01/25 02/02/25 02/03/25
06:59 06:59 06:59
Intake Total 680 / 680 1196 / 1196 472 / 472
Output Total 625 / 625 1000 / 1000
Balance 55 / 55 196 / 196 472 / 472
Physical Exam
-
General: Well Developed, Well Nourished and Pain (Minimal)
HEENT: Normocephalic, Atraumatic and Moist Mucous Membranes
Respiratory: Clear to Auscultation
Cardiac: Regular Rhythm
GI: Soft, Nontender and Nondistended
Musculoskeletal: No Edema
Skin: Warm and Dry
Neuro: Awake, Alert and Oriented
Psych: Calm
--- NOTE | 2025-02-02 12:29 | W.PN.UPDATE ---
Update Note
Progress Note Update
Discussed case with resident
HPI: 69-year-old male with PMH significant for L4-L5 hemilaminectomy on 01/[address] Wisdom.
A/P:
# L4-L5 hemilaminectomy on 01/15/25 with subsequent drainage
recently hospitalized from 01/16 - 01/19 for extreme back pain, CT lumbar spine indicated a small seroma in the left hemilaminectomy site. At that time superimposed infection of seroma could not be excluded per imaging.
Dr. Wisdom requested patient come to ED for admission and washout
s/p Lumbar wound I and D on 01/31/2025
Pain control with Tylenol ATC and PRN, Tramadol PRN and IV Dilaudid PRN
Blood cultures negative
Follow wound cultures
ID on board
Cont Vancomycin
Encouraged pt to cont ambulation and early mobility
# Hypertension
Continue amlodipine and losartan with holding parameters
# Hypercholesteremia
Continue atorvastatin
# Gout
Continue allopurinol
DVT ppx: SCD for now, per Dr Wisdom, avoid chemical DVT ppx for at least 5 days
FC
[2025-02-02 15:40] VITALS: BP 118/66
[2025-02-02] MEDS: ULTRAM 50 MG PO ×2 (17:06→23:25)
[2025-02-02 23:00] VITALS: BP 106/50
[2025-02-03] MEDS: TYLENOL 1000 MG PO ×3 (03:19→21:00)
[2025-02-03] MEDS: VANCOCIN 200 IV (05:48)
[2025-02-03 05:58] LABS: Hematocrit 39.5 % (39.0-52.0); Hemoglobin 13.0 g/dL (13.0-18.0); Mean Corp Hgb Conc. 32.9 g/dL (33.0-37.0); Mean Corpuscular Volume 85.9 fL (80.0-94.0); Platelet Count 484 10^3/uL (130-400); Red Cell Dist. Width 13.5 % (11.5-14.5)
[2025-02-03 06:17] LABS: Blood Urea Nitrogen 11 mg/dl (9-20); Calcium 8.9 mg/dl (8.4-10.2); Carbon Dioxide 27 mmol/L (22-30); Chloride 102 mmol/L (98-107); Estimated Creatinine Clearance 84 ml/min; Glucose 86 mg/dl (70-99); Potassium 4.4 mmol/L (3.5-5.1); Sodium 135 mmol/L (135-145); eGFR > 60.00
[2025-02-03 07:25] VITALS: BP 138/77
--- NOTE | 2025-02-03 08:38 | PHA.VAN.FU ---
Vancomycin Assessment / Plan
- Assessment
Renal Function: Stable
WBC's are: WNL
In the past 24 hrs, patient has been: Afebrile
- Assessment - Therapeutic Drug Monitoring
Extrapolated Cmax (mcg/mL): 24.8
Peak level was drawn: Appropriately
Extrapolated Cmin (mcg/mL): 13.6
Trough Drawn: Appropriately
Levels were drawn: At steady state
Calculated AUC (mcg*h/mL): 449
Calculated ke: 0.05
Calculated half life (H): 12.8
Calculated Vd (L): 82.1
Calculated Vanc CL (ml/min): 4.46
- Dosing Plan
Continue: Vancomycin 1 gram IV q12h
- Monitoring Plan
No level(s) ordered at this time: Consider weekly levels or if renal function changes
- Follow Up
Pharmacy will continue to follow.
Vancomycin Follow UP
- -
Patient Age: 69
Patient Sex: Male
Vancomycin Day #: 4
Indication: Skin And Soft Tissue
Requesting Provider: Finn ROSADO
Pertinent Antimicrobial Allergies:
NKDA
Height / Weight:
Height 6 ft 1 in
Actual Weight 78.471 kg
Pertinent Past Medical History: Hemilaminectomy 01/15/25
- Vital Signs / Lab Results
Temp Pulse Resp BP Pulse Ox
97.8 F 69 16 138/77 97
02/03/25 07:25 02/03/25 07:25 02/03/25 07:25 02/03/25 07:25 02/03/25 07:25
Lab Results - Hematology
01/31/25 02/01/25 02/02/25
11:12 08:14 06:49
WBC 7.2 13.5 H 8.8
02/03/25
05:31
WBC 7.9
Lab Results - Chemistry
01/31/25 02/01/25 02/02/25
11:12 08:14 06:49
BUN 14 13 13
Creatinine 0.9 0.8 0.9
Estimated Creat Clear 84 94 84
Albumin 4.3
02/03/25
05:31
BUN 11
Creatinine 0.9
Estimated Creat Clear 84
Albumin
01/31/25 01/31/25
11:12 15:00
Lactic Acid 1.0 Cancelled
Microbiology Results
01/31/25 15:52 Wound Culture - Preliminary
Back No growth
Gram Stain - Preliminary
01/31/25 12:17 Blood Culture - Preliminary
Blood/Venous No Growth in 48 hours- Final report to follow
01/31/25 11:12 Blood Culture - Preliminary
Blood/Venous No Growth in 48 hours- Final report to follow
01/31/25 15:52 Anaerobic Culture - Preliminary
Back Culture pending. Anaerobic cultures are examined after 3
days incubation. Additional information to follow.
Therapeutic Drug Monitoring
Vancomycin Peak 21.6 ug/ml (18-26) 02/02/25 21:55
Vancomycin Trough 14.3 ug/ml (5-20) 02/03/25 05:31
[2025-02-03] MEDS: SENOKOT-S 1 TABLET PO ×2 (08:48→21:03)
[2025-02-03] MEDS: ZYLOPRIM 200 MG PO (08:49)
[2025-02-03] MEDS: NORVASC 10 MG PO (08:49)
[2025-02-03] MEDS: COZAAR 50 MG PO (08:50)
[2025-02-03] MEDS: LIPITOR 20 MG PO (08:50)
[2025-02-03] MEDS: ULTRAM 50 MG PO (10:20)
--- NOTE | 2025-02-03 13:00 | W.PN.SP ---
Today's Communication / Plan
-
s/p I&D
No growth, No WBC
Hopefully will be final soon
Abx, per ID. Would proabaly at least have oral abx for 10 days
Hopeful for D/C tomorrow
Subjective / Objective
Subjective Data
PT overall doing well
Ambulating
Afebrile
No growth, No WBC's on cultures so far
Appreciate Dr. Gold and Hospitalist service
Objective Data
Vital Signs
Temp Pulse Resp BP Pulse Ox
97.8 F 69 16 138/77 97
02/03/25 07:25 02/03/25 08:49 02/03/25 07:25 02/03/25 08:49 02/03/25 07:25
Intake and Output
02/02/25 02/03/25 02/04/25
06:59 06:59 06:59
Intake Total 1196 / 1196 2744 / 2744
Output Total 1000 / 1000
Balance 196 / 196 2744 / 2744
Intake:
Oral fluids 1196 / 1196 2744 / 2744
Output:
Urine, Voided 1000 / 1000
Other:
Number of approximated MODERATE 1 3
amounts of urine
Lab Data
02/03/25 05:31
02/03/25 05:31
Physical Exam
-
Wound looks good
NVI
[2025-02-03] MEDS: MIRALAX 17 GRAMS PO (14:12)
--- NOTE | 2025-02-03 14:52 | CM ---
Chart reviewed
Case Management will monitor for disposition needs and support when identified
Plan: possible discharge tomorrow
--- NOTE | 2025-02-03 15:04 | W.PN.ID1 ---
Date of Service
Date of Service: February 03, 2025
Today's Communication
Continue antibiotics. Transition to oral Augmentin.
Assessment / Plan
S/p L4-5 hemilaminectomy (01/15/2025)
Wound drainage; s/p washout (01/31/2025)
Leukocytosis; likely secondary to surgery yesterday
HTN
HLD
Recommendations:
Intraoperative cultures NGTD
Transition to Augmentin. Would continue with additional 7 days of antibiotics.
Local care to the wound area.
Monitor white count and temperature curve.
Chief Complaint
-: Other (Back wound)
Subjective / Review of Systems
Review of Systems: No Fever and No Chills
Vital Signs / Physical Exam
Vital Signs
Vital Signs
Temp Pulse Resp BP Pulse Ox
97.8 F 69 16 138/77 97
02/03/25 07:25 02/03/25 08:49 02/03/25 07:25 02/03/25 08:49 02/03/25 07:25
Physical Exam
Constitutional: No Acute Distress, Comfortable and Non-toxic
Cardiovascular: S1/S2; Negative S3/S4
Pulmonary: Non Labored
Gastrointestinal: Soft, Non Tender and Non Distended
Wound: Other (Lumbar wound dressing in place. No strikethrough.)
Neurological: Awake and Alert
Psychological: Calm
Objective Data
Lab Data
Lab Results
02/03/25 05:31
02/03/25 05:31
ESR 16 mm/hour (0-20) 01/31/25 11:12
Estimated Creat Clear 84 ml/min 02/03/25 05:31
Lactic Acid Cancelled 01/31/25 15:00
Total Bilirubin 0.7 mg/dl (0.2-1.3) 01/31/25 11:12
AST 21 U/L (17-59) 01/31/25 11:12
ALT 30 U/L (0-50) 01/31/25 11:12
Alkaline Phosphatase 73 U/L (38-126) 01/31/25 11:12
C-Reactive Protein < 5.00 mg/L (0.0-10.00) 01/31/25 11:12
Most recent labs reviewed.
Micro Results:
01/31/25 15:52 Anaerobic Culture - Preliminary
Back NO ANAEROBES ISOLATED
01/31/25 12:17 Blood Culture - Preliminary
Blood/Venous No Growth in 72 hours- Final report to follow
01/31/25 11:12 Blood Culture - Preliminary
Blood/Venous No Growth in 72 hours- Final report to follow
01/31/25 15:52 Wound Culture - Preliminary
Back No growth
Gram Stain - Preliminary
Imaging:
01/18/2025 CT lumbar spine without contrast: patient is status post left hemilaminectomy at L4-5. Contrast resolution of the soft tissues is somewhat poor on this unenhanced CT. A small seroma at the left Berhane laminectomy site is seen. No other
focal collections identified. No evidence for discitis or osteomyelitis.
[2025-02-03 15:49] VITALS: BP 121/68
--- NOTE | 2025-02-03 16:23 | W.PN.HOSP.TC ---
Addendum entered and electronically signed by Shun Carter MD 02/03/25 23:10:
Attending Addendum-
I saw and evaluated the patient. I reviewed the resident�s note and agree with findings and plan as documented in the resident�s note. Sub: back pain improved. No fevers chills. complains fo constipation. Full 12 point ROS reviewed and negative
except as documented Exam: Vitals reviewed in chart GEN-NAD heart RRR no MRG lungs clearabd soft LE no edmea back bandaged no surrounding redness or warmth
# L4-L5 hemilaminectomy on 01/15/25 with subsequent drainage
-recently hospitalized from 01/16 - 01/19 for extreme back pain, CT lumbar spine indicated a small seroma in the left hemilaminectomy site. At that time superimposed infection of seroma could not be excluded per imaging.
-s/p Lumbar wound I and D on 01/31- non purulent appearing
Pain control with Tylenol ATC and PRN, Tramadol PRN and IV Dilaudid PRN
Blood cultures negative
wound cultures negative
ID on board
Vancomycin-> Augmentin per ID
Encouraged pt to cont ambulation and early mobility
# Constipation- start aggressive bowel regimin
# Hypertension
Continue amlodipine and losartan with holding parameters
# Hypercholesteremia
Continue atorvastatin
# Gout
Continue allopurinol
DVT ppx: SCD for now, per Dr Wisdom, avoid chemical DVT ppx for at least 5 days
FC
Dispo DC home in am
Time spent coordinating care, review of plan of care with resident, personally reviewed records in EMR, med rec, consults, notes, labs, radiology, d/w nursing � 51 mins
Original Note:
Today's Communication/Plan
-
Continue vancomycin and switch to oral Augmentin for an additional 7 days of antibiotic
Patient cleared by orthopedic perspective
If patient stable with no grown organisms over 24h - will move forward with DC planning with course of oral abx
Assessment / Plan
Assessment / Plan
Assessment/Plan:
-L4-L5 hemilaminectomy on 01/15/25 with consistent drainage: Stable/Monitoring
Hospitalization from 01/16 - 01/19 for extreme back pain, CT lumbar spine indicated a small seroma in the left hemilaminectomy site. At that time superimposed infection of seroma could not be excluded per imaging.
S/p L4-5 hemilaminectomy
Drainage present for the last 10 days prior to I&D on 01/31/2025
I&D completed on 01/31/2025
Leukocytosis resolved -likely secondary to surgery
Final blood cultures negative
Preliminary wound cultures negative
Continue pain management as needed with scheduled Tylenol
Maintain wound care
Appreciate infectious diseases recommendations�they recommend continuing vancomycin for 02/03/2025 and to switch to oral Augmentin for an additional 7 days of antibiotic.
-Hypertension: Stable/Monitoring
Continue amlodipine and losartan
-Hypercholesteremia
Continue atorvastatin
-Gout
Continue allopurinol
CODE STATUS: FULL CODE
DVT Prophylaxis: SCDs
Anticipated Discharge: 24 - 48 hours
Subjective/Interval History
-
Date of Service: February 03, 2025
Met with patient at the bedside. Overall patient believes that his recovery is going well. Still endorses back pain but it has reduced since initial presentation. Patient believes that his dressing is intact and is undisturbed. Patient tries to
ambulate as tolerated and is able to go to the bathroom on his own. He is anxious about the results of his cultures and sensitivities. Supportive counseling provided at the bedside.
Objective Data
-
Labs:
Laboratory Results
02/03/25
05:31
WBC 7.9
Hgb 13.0
Hct 39.5
Plt Count 484 H
Sodium 135
Potassium 4.4
Chloride 102
Carbon Dioxide 27
BUN 11
Creatinine 0.9
Glucose 86
Calcium 8.9
Vital Signs:
Vital Signs
Temp Pulse Resp BP Pulse Ox
98.8 F 70 16 121/68 98
02/03/25 15:49 02/03/25 15:49 02/03/25 15:49 02/03/25 15:49 02/03/25 15:49
I&O
02/02/25 02/03/25 02/04/25
06:59 06:59 06:59
Intake Total 1196 / 1196 2744 / 2744
Output Total 1000 / 1000
Balance 196 / 196 2744 / 2744
Review of Systems
-
History Source: Patient
Constitutional: Reports No Symptoms
Respiratory: Reports No Symptoms
Cardiac: Reports No Symptoms
Abdomen/GI: Reports No Symptoms
Breast: Reports No Symptoms
Genitourinary: Reports No Symptoms
Musculoskeletal: Reports Muscle Pain (Back pain)
Skin: Reports Other (Wound on L2-L4 region covered with bandage that is undisturbed)
Neuro: Reports No Symptoms
Endocrine: Reports No Symptoms
Hematologic / Lymphatic: Reports No Symptoms
Psych: Reports Anxious
Physical Exam
-
General: Well Developed, Well Nourished, Pain (Irritating back pain 3/10 worsening on sitting upright. Normal ROM.) and Conversant; Negative Respiratory Distress, Fever or Chills
HEENT: Normocephalic, Atraumatic and Moist Mucous Membranes
Respiratory: Clear to Auscultation and Non Labored Respirations; Negative Wheezes, Rales, Rhonchi or Crackles
Cardiac: Regular Rhythm and S1/S2; Negative Irregular Rhythm, Murmur or Rub
GI: Soft, Nontender, Nondistended and Normal Bowel Sounds
Musculoskeletal: No Clubbing, No Cyanosis and No Edema
Skin: Warm, Dry and Lesions (Lesion on back near L2-L4); Negative Rash or Ulcers
Neuro: Awake, Alert, Oriented and AO x 3
Psych: Calm
[2025-02-03] MEDS: AUGMENTIN 875 MG/125 MG 1 TABLET PO (21:04)
[2025-02-03 23:00] VITALS: BP 121/65
[2025-02-04] MEDS: TYLENOL 1000 MG PO ×2 (03:37→11:15)
--- NOTE | 2025-02-04 07:28 | W.PN.HOSP.TC ---
Addendum entered and electronically signed by Shun Carter MD 02/04/25 22:28:
Attending Addendum-
I saw and evaluated the patient. I reviewed the resident�s note and agree with findings and plan as documented in the resident�s note. Sub: back feels tight but pain well controlled. Wants to go home. No fevers chills. Full 12 point ROS reviewed and
negative except as documented Exam: Vitals reviewed in chart GEN-NAD heart RRR no MRG lungs clear abd soft LE no edema back bandaged no surrounding redness or warmth
# L4-L5 hemilaminectomy on 01/15/25 with subsequent drainage
-recently hospitalized from 01/16 - 01/19 for extreme back pain, CT lumbar spine indicated a small seroma in the left hemilaminectomy site. At that time superimposed infection of seroma could not be excluded per imaging.
-s/p Lumbar wound I and D on 01/31- non purulent appearing
Pain control with Tylenol ATC and PRN, Tramadol PRN and IV Dilaudid PRN
Blood cultures negative
wound cultures negative
ID on board
Vancomycin-> Augmentin per ID x 7 additional days on DC
Encouraged pt to cont ambulation and early mobility
# Constipation- cont aggressive bowel regimen
# Hypertension
Continue amlodipine and losartan with holding parameters
# Hypercholesteremia
Continue atorvastatin
# Gout
Continue allopurinol
DVT ppx: SCD for now, per Dr Wisdom, avoid chemical DVT ppx for at least 5 days
FC
Dispo DC home
Time spent coordinating care, DC planning, review of DC plan of care with resident, transition of care, review of records, med rec/scripts sent electronically, consults, notes, d/w consultants, nursing, and CM� 33 mins >50% of this time was devoted
to counseling and coordination of care
Original Note:
Today's Communication/Plan
-
Plan to discharge with Augmentin for 7 days
Discussed with the patient discharge planning and follow-up with primary care physician and Dr. Wisdom
Answered all questions and concerns
Assessment / Plan
Assessment / Plan
Impression
Patient is a 69-year-old male, s/p L4-L5 hemilaminectomy on 01/15/2025, s/p I&D 01/31/2025, wound healing well. Vitally and hemodynamically stable
Assessment/Plan:
-L4-L5 hemilaminectomy on 01/15/25 with consistent drainage:
I&D on 01/31/2025
WBC count stable, hemoglobin stable, remained afebrile
Blood cultures remained negative to date
Intraoperative wound cultures negative to date
Wound clean, dry and intact, evaluated by orthopedics -cleared for discharge
Appreciate ID recommendations-recommended Augmentin 875-125 mg for next 7 days
-Hypertension:
Continue amlodipine and losartan
-Hypercholesteremia
Continue atorvastatin
-Gout
Continue allopurinol
CODE STATUS: FULL CODE
DVT Prophylaxis: SCDs
Anticipated Discharge: Today
Subjective/Interval History
-
Date of Service: February 04, 2025
Patient seen and examined at bedside
Overall patient feeling well, reports some discomfort in the back but mostly due to stiffness and not actually pain, not requiring any opioid medications
Tolerating a regular diet
Ambulating on his own
Had a bowel movement this morning
Objective Data
-
Labs:
Laboratory Results
02/04/25
06:00
WBC Pending
Hgb Pending
Hct Pending
Plt Count Pending
Sodium Pending
Potassium Pending
Chloride Pending
Carbon Dioxide Pending
BUN Pending
Creatinine Pending
Glucose Pending
Calcium Pending
Total Bilirubin Pending
AST Pending
ALT Pending
Alkaline Phosphatase Pending
Vital Signs:
Vital Signs
Temp Pulse Resp BP Pulse Ox
98.0 F 77 16 121/65 98
02/03/25 23:00 02/03/25 23:00 02/03/25 23:00 02/03/25 23:00 02/03/25 23:00
I&O
02/03/25 02/04/25 02/05/25
06:59 06:59 06:59
Intake Total 2744 / 2744 480 / 480
Balance 2744 / 2744 480 / 480
Review of Systems
-
Constitutional: Reports Fatigue
Respiratory: Reports No Symptoms
Cardiac: Reports No Symptoms
Abdomen/GI: Reports No Symptoms
Genitourinary: Reports No Symptoms
Musculoskeletal: Reports Muscle Stiffness
Skin: Reports No Symptoms
Neuro: Reports No Symptoms
Endocrine: Reports No Symptoms
Hematologic / Lymphatic: Reports No Symptoms
Allergy / Immunology: Reports No Symptoms
Physical Exam
-
General: Well Developed, Well Nourished and Other (Reports mild discomfort in the back, reports improvement with change in position, ambulating fine)
HEENT: Normocephalic, Atraumatic and Moist Mucous Membranes
Respiratory: Clear to Auscultation and Non Labored Respirations
Cardiac: Regular Rhythm and S1/S2; Negative Murmur or Rub
GI: Soft, Nontender, Nondistended and Normal Bowel Sounds
Musculoskeletal: No Clubbing, No Cyanosis, No Edema and Other (Dressing at the lower back at the level of L2-L5, dry and intact Mild erythema, no rashes, no drainage observed)
Skin: Warm and Dry
Neuro: Awake, Alert, Oriented and No Motor Deficits
Psych: Calm
[2025-02-04 07:45] VITALS: BP 129/69
[2025-02-04 08:21] LABS: Hematocrit 38.3 % (39.0-52.0); Hemoglobin 12.9 g/dL (13.0-18.0); Mean Corp Hgb Conc. 33.7 g/dL (33.0-37.0); Mean Corpuscular Volume 85.7 fL (80.0-94.0); Platelet Count 454 10^3/uL (130-400); Red Cell Dist. Width 13.4 % (11.5-14.5)
[2025-02-04 08:44] LABS: ALT (SGPT) 20 U/L (0-50); AST (SGOT) 16 U/L (17-59); Albumin 3.8 g/dl (3.5-5.0); Alkaline Phosphatase 73 U/L (38-126); Blood Urea Nitrogen 12 mg/dl (9-20); Calcium 9.2 mg/dl (8.4-10.2); Carbon Dioxide 27 mmol/L (22-30); Chloride 106 mmol/L (98-107); Estimated Creatinine Clearance 94 ml/min; Glucose 90 mg/dl (70-99); Potassium 4.4 mmol/L (3.5-5.1); Sodium 137 mmol/L (135-145); Total Protein 6.4 g/dl (6.3-8.2); eGFR > 60.00
[2025-02-04] MEDS: NORVASC 10 MG PO (10:08)
[2025-02-04] MEDS: SENOKOT-S 1 TABLET PO (10:08)
[2025-02-04] MEDS: LIPITOR 20 MG PO (10:09)
[2025-02-04] MEDS: MIRALAX 17 GRAMS PO (10:09)
[2025-02-04] MEDS: AUGMENTIN 875 MG/125 MG 1 TABLET PO (10:09)
[2025-02-04] MEDS: COZAAR 50 MG PO (10:09)
[2025-02-04] MEDS: ZYLOPRIM 200 MG PO (10:09)
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
--- NOTE | 2025-02-04 13:20 | CM ---
Patient has been medically cleared for discharge to home with no additional skilled services. Declined HH RN. Patient is arranging for transport home.
--- NOTE | 2025-02-04 13:23 | W.PN.ID1 ---
Date of Service
Date of Service: February 04, 2025
Today's Communication
Continue antibiotics.
Assessment / Plan
S/p L4-5 hemilaminectomy (01/15/2025)
Wound drainage; s/p washout (01/31/2025)
Leukocytosis; likely secondary to surgery yesterday
HTN
HLD
Recommendations:
Intraoperative cultures without growth.
Continue with 6 additional days of Augmentin.
Local care to the wound area.
Follow-up with Spine Surgery in the outpatient setting.
Chief Complaint
-: Other (Back wound)
Subjective / Review of Systems
Review of Systems: No Fever and No Chills
Vital Signs / Physical Exam
Vital Signs
Vital Signs
Temp Pulse Resp BP Pulse Ox
98.4 F 73 16 129/69 100
02/04/25 07:45 02/04/25 07:45 02/04/25 07:45 02/04/25 07:45 02/04/25 07:45
Physical Exam
Constitutional: No Acute Distress, Comfortable and Non-toxic
Cardiovascular: S1/S2; Negative S3/S4
Pulmonary: Non Labored
Gastrointestinal: Soft, Non Tender and Non Distended
Wound: Other (Lumbar wound dressing in place. No strikethrough.)
Neurological: Awake and Alert
Psychological: Calm
Objective Data
Lab Data
Lab Results
02/04/25 08:09
02/04/25 08:09
ESR 16 mm/hour (0-20) 01/31/25 11:12
Estimated Creat Clear 94 ml/min 02/04/25 08:09
Lactic Acid Cancelled 01/31/25 15:00
Total Bilirubin 0.6 mg/dl (0.2-1.3) 02/04/25 08:09
AST 16 U/L (17-59) L 02/04/25 08:09
ALT 20 U/L (0-50) 02/04/25 08:09
Alkaline Phosphatase 73 U/L (38-126) 02/04/25 08:09
C-Reactive Protein < 5.00 mg/L (0.0-10.00) 01/31/25 11:12
Most recent labs reviewed.
Micro Results:
01/31/25 12:17 Blood Culture - Preliminary
Blood/Venous No Growth in 4 days- Final report to follow
01/31/25 11:12 Blood Culture - Preliminary
Blood/Venous No Growth in 4 days- Final report to follow
01/31/25 15:52 Anaerobic Culture - Preliminary
Back NO ANAEROBES ISOLATED
01/31/25 15:52 Wound Culture - Preliminary
Back No growth
Gram Stain - Preliminary
Imaging:
01/18/2025 CT lumbar spine without contrast: patient is status post left hemilaminectomy at L4-5. Contrast resolution of the soft tissues is somewhat poor on this unenhanced CT. A small seroma at the left Berhane laminectomy site is seen. No other
focal collections identified. No evidence for discitis or osteomyelitis.
[2025-02-04 15:05] VITALS: BP 125/71
== END 2025-02-04 16:56 | disposition home or self-care (01) | DRG 909 ==
LOC: 2 SOUTH 12:48
PROVIDERS: Orthopaedic Surgery Orthopaedic Surgery of the Spine; ADMITTING PHYSICIAN Hospitalist; ATTENDING PHYSICIAN Family Medicine; CONSULT PHYSICIAN Internal Medicine Infectious Disease; EMERGENCY PHYSICIAN Emergency Medicine; FAMILY PHYSICIAN Nurse Practitioner Adult Health
PROC: 0JD70ZZ Extraction of Back Subcutaneous Tissue and Fascia, Open Approach (ICD-10-PCS; 2025-01-31)
DX: L76.34 Postprocedural seroma of skin and subcutaneous tissue following other procedure (principal); Y83.8 Other surgical procedures as the cause of abnormal reaction of the patient, or of later complication, without mention of misadventure at the time of the procedure; Y92.9 Unspecified place or not applicable; E78.00 Pure hypercholesterolemia, unspecified; I10 Essential (primary) hypertension; N20.0 Calculus of kidney; M10.9 Gout, unspecified; K59.00 Constipation, unspecified; Z60.2 Problems related to living alone; Z90.49 Acquired absence of other specified parts of digestive tract; Z87.828 Personal history of other (healed) physical injury and trauma
CPT/HCPCS: 80048; 80053; 80202; 82565; 83605; 85025; 85027; 85652; 86140; 87040; 87070; 87075; 87205; 99284